=== PATIENT | female | born 1965 | race African-American/Black ===

== ENCOUNTER 2019-11-04 01:35 | Inpatient (IN) | payer MEDICAID ==
[~2019-11-04] VITALS: Ht 167.6 cm; Wt 58.1 kg
[~2019-11-04 01:35] MED LIST: LISI10TA5 PO
[2019-11-04] MEDS ORDERED: SODIUM CHLORIDE 0.9% 1,000 ML IV ONE ×2 (02:01→04:13)
[2019-11-04] MEDS ORDERED: KETOROLAC 30MG/ML VIAL IV STA (02:01)
[2019-11-04] MEDS ORDERED: ONDANSETRON HCL 4MG/2ML INJ IV STA (02:01)
[2019-11-04] MEDS ORDERED: FAMOTIDINE 20MG/2ML VIAL IV ONE (02:15)
[2019-11-04 02:26] LABS: BASOPHILS % 0.3 % (0.0-2.0); HEMOGLOBIN. 13.5 g/dL (12.0-16.0); LYMPHOCYTES % 7.8 % (20.0-50.0); MEAN CORPUSCULAR HEMOGLOBIN 32.1 pg (28.0-32.0); MEAN CORPUSCULAR VOLUME 92.4 fL (81.0-99.0); MEAN PLATELET VOLUME 8.6 fl (7.4-10.4); MONOCYTES % 3.9 % (2.0-8.0); PLATELET 384 x1000/uL (130-400); RED BLOOD CELL COUNT 4.22 mill/uL (4.2-5.4); RED CELL DISTRIBUTION WIDTH 13.2 % (11.6-14.6)
[2019-11-04 02:31] LABS: CHLORIDE 91 mEq/L (98-107)
[2019-11-04 03:04] LABS: CLARITY URINE CLOUDY (CLEAR); COLOR URINE YELLOW (YELLOW); KETONES URINE 2+ (NEGATIVE); LEUKOCYTE ESTERASE URINE NEGATIVE (NEGATIVE); NITRITE URINE NEGATIVE (NEGATIVE); OCCULT BLOOD URINE 1+ (NEGATIVE); PROTEIN URINE 2+ (NEGATIVE); SPECIFIC GRAVITY URINE 1.022 (1.005-1.030)
[2019-11-04] MEDS ORDERED: VISCOUS LIDOCAINE 2% 15 ML UDC MM STA (05:28)
[2019-11-04] MEDS ORDERED: MAGNESIUM/ALUMINUM HYDROXIDE/SIMETHICONE 30ML UDC PO ONE (05:30)
[2019-11-04] MEDS ORDERED: CEFTRIAXONE 2 G PREMIX 50 ML IV ONE (08:45)
[2019-11-04 12:00] VITALS: BP 142/85
[2019-11-04 13:00] VITALS: BP 118/57
[2019-11-04] MEDS ORDERED: CLONIDINE 0.1MG TABLET PO PRN (14:00)
[2019-11-04] MEDS ORDERED: SODIUM CHLORIDE 0.9% 1,000 ML IV SCH (14:00)
[2019-11-04] MEDS ORDERED: FAMOTIDINE 20MG/2ML VIAL IV SCH (14:00)
[2019-11-04] MEDS ORDERED: MECL-159 MT (14:23)
[2019-11-04] MEDS ORDERED: ACET650T37 PO (14:23)
[2019-11-04] MEDS ORDERED: POTA20TA82 MT (14:23)
[2019-11-04] MEDS ORDERED: ASPI-1497 MT (14:23)
[2019-11-04] MEDS ORDERED: LISI-648 MT (14:23)
[2019-11-04] MEDS ORDERED: SUCR1TAB30 MT (14:23)
[2019-11-04] MEDS ORDERED: ATOR-2 MT (14:23)
[2019-11-04 16:00] VITALS: BP 139/71
[2019-11-04] MEDS: KETOROLAC 30MG/ML VIAL IV PRN (17:35)
[2019-11-04] MEDS ORDERED: DEXT 5%/0.45% NACL 1000ML 1,000 ML IV SCH (18:24)
[2019-11-04] MEDS ORDERED: HYDRALAZINE 20MG/ML VIAL IV PRN (18:30)
[2019-11-04] MEDS ORDERED: MAGNESIUM/ALUMINUM HYDROXIDE/SIMETHICONE 30ML UDC PO PRN (18:30)
[2019-11-04] MEDS ORDERED: DIPHENHYDRAMINE 50MG/ML VIAL IV PRN (18:30)
[2019-11-04] MEDS ORDERED: ZOLPIDEM TARTRATE 5MG TABLET PO PRN (18:30)
[2019-11-04] MEDS ORDERED: LORAZEPAM 2MG/ML CPJ IV PRN (18:30)
[2019-11-04] MEDS ORDERED: ONDANSETRON HCL 4MG/2ML INJ IV PRN (18:30)
[2019-11-04] MEDS ORDERED: ACETAMINOPHEN 325MG TABLET PO PRN (18:30)
[2019-11-04 20:00] VITALS: BP 123/71
[2019-11-04] MEDS ORDERED: MVI, ADULT NO.1 10 ML, FOLIC ACID 1 MG, THIAMINE HCL 100 MG in SODIUM CHLORIDE 0.9% 1,0... IV SCH ×4 (20:00)
[2019-11-04] MEDS ORDERED: LEVOFLOXACIN 500MG PREMIX 100 ML IV SCH (20:00)
[2019-11-04] MEDS: FAMOTIDINE 20MG/2ML VIAL IV SCH (21:44)
[2019-11-05] VITALS: BP 110/74
[2019-11-05] MEDS: KETOROLAC 30MG/ML VIAL IV PRN ×3 (02:55→16:32)
[2019-11-05 04:00] VITALS: BP 116/68
[2019-11-05 07:02] LABS: BASOPHILS % 0.9 % (0.0-2.0); EOSINOPHILS % 0.6 % (0.0-5.0); HEMATOCRIT. 31.3 % (36.0-48.0); HEMOGLOBIN. 10.7 g/dL (12.0-16.0); LYMPHOCYTES % 26.9 % (20.0-50.0); MEAN CORPUSCULAR HEMOGLOBIN 32.4 pg (28.0-32.0); MEAN CORPUSCULAR VOLUME 94.5 fL (81.0-99.0); MEAN PLATELET VOLUME 7.9 fl (7.4-10.4); MONOCYTES % 9.3 % (2.0-8.0); NEUTROPHILS % 62.3 % (40.0-76.0); PLATELET 256 x1000/uL (130-400); RED BLOOD CELL COUNT 3.31 mill/uL (4.2-5.4); RED CELL DISTRIBUTION WIDTH 13.2 % (11.6-14.6)
[2019-11-05 07:44] LABS: PHOSPHORUS 2.8 mg/dL (2.5-4.9)
[2019-11-05] MEDS: FAMOTIDINE 20MG/2ML VIAL IV SCH (09:15)
[2019-11-05] MEDS: DEXT 5%/0.45% NACL 1000ML 1,000 ML IV SCH (19:08)
[2019-11-05 20:00] VITALS: BP 103/61
[2019-11-05] MEDS ORDERED: LEVOFLOXACIN 250MG PREMIX 50 ML IV SCH (20:00)
[2019-11-05] MEDS: PHENAZOPYRIDINE HCL 100MG TABLET PO SCH (21:17)
[2019-11-06] VITALS (7 sets, daily range): BP systolic 101–116; BP diastolic 61–75
[2019-11-06] MEDS: KETOROLAC 30MG/ML VIAL IV PRN (00:23)
[2019-11-06] MEDS: DEXT 5%/0.45% NACL 1000ML 1,000 ML IV SCH ×2 (04:40→09:09)
[2019-11-06] MEDS: PHENAZOPYRIDINE HCL 100MG TABLET PO SCH ×2 (09:01→12:37)
[2019-11-06] MEDS: FAMOTIDINE 20MG/2ML VIAL IV SCH (09:01)
== END 2019-11-06 20:10 | disposition home or self-care (01) | DRG 720 ==
LOC: ER 01:35 → 6WST 10:45 → CANRESERV 11:04 → ENRESERV 11:04 → EDBEDREQSVC 11:13 → EDBEDREQTM 11:13 → ENRESERV 11:34
PROVIDERS: ADMIT Internal Medicine; ATTEND Internal Medicine
DX: A41.9 Sepsis, unspecified organism (principal); N17.9 Acute kidney failure, unspecified; E87.8 Other disorders of electrolyte and fluid balance, not elsewhere classified; E87.1 Hypo-osmolality and hyponatremia; N30.00 Acute cystitis without hematuria; E78.00 Pure hypercholesterolemia, unspecified; I10 Essential (primary) hypertension; K21.9 Gastro-esophageal reflux disease without esophagitis; Z59.0 Homelessness; Z82.49 Family history of ischemic heart disease and other diseases of the circulatory system; Z87.440 Personal history of urinary (tract) infections; Z90.49 Acquired absence of other specified parts of digestive tract; Z90.721 Acquired absence of ovaries, unilateral; Z88.6 Allergy status to analgesic agent; Z88.5 Allergy status to narcotic agent; Z79.82 Long term (current) use of aspirin; Z79.899 Other long term (current) drug therapy
CPT/HCPCS: 36415; 74176; 80048; 80053; 81003; 83735; 84100; 85025; 99285; J0696; J1885; J1956; J2405; J3411; J3490; J7030

== ENCOUNTER 2020-10-17 09:03 | Inpatient (IN) | payer MEDICAID ==
[~2020-10-17] VITALS: Ht 157.5 cm; Wt 64.2 kg
[~2020-10-17 09:03] MED LIST changes: +ACET650T37 PO; +ASPI-1497 MT; +ATOR-2 MT; +LISI-648 MT; +LISI10TA26 PO; -LISI10TA5 PO; +MECL-159 MT; +POTA20TA82 MT; +SUCR1TAB30 MT
[2020-10-17] MEDS ORDERED: SODIUM CHLORIDE 0.9% 1,000 ML IV ONE (09:45)
[2020-10-17] MEDS ORDERED: KETOROLAC 15MG/ML VIAL IV ONE (09:45)
[2020-10-17] MEDS ORDERED: ONDANSETRON HCL 4MG/2ML INJ IV ONE (09:45)
[2020-10-17 09:58] LABS: CLARITY URINE TURBID (CLEAR); COLOR URINE YELLOW (YELLOW); KETONES URINE 4+ (NEGATIVE); LEUKOCYTE ESTERASE URINE 2+ (NEGATIVE); NITRITE URINE NEGATIVE (NEGATIVE); OCCULT BLOOD URINE 2+ (NEGATIVE); PROTEIN URINE 2+ (NEGATIVE); SPECIFIC GRAVITY URINE 1.023 (1.005-1.030)
[2020-10-17 10:03] LABS: EOSINOPHILS % 1.4 % (0.0-5.0); HEMATOCRIT. 39.8 % (36.0-48.0); HEMOGLOBIN. 13.7 g/dL (12.0-16.0); LYMPHOCYTES % 25.8 % (20.0-50.0); MEAN CORPUSCULAR HEMOGLOBIN 32.4 pg (28.0-32.0); MEAN CORPUSCULAR VOLUME 94.1 fL (81.0-99.0); MEAN PLATELET VOLUME 8.3 fl (7.4-10.4); MONOCYTES % 9.4 % (2.0-8.0); NEUTROPHILS % 62.4 % (40.0-76.0); PLATELET 342 x1000/uL (130-400); RED BLOOD CELL COUNT 4.24 mill/uL (4.2-5.4); RED CELL DISTRIBUTION WIDTH 13.9 % (11.6-14.6)
[2020-10-17 10:06] LABS: CHLORIDE 93 mEq/L (98-107)
[2020-10-17 10:08] LABS: PROTHROMBIN TIME 10.8 sec (9.6-11.0)
[2020-10-17] MEDS ORDERED: KCL 20MEQ/100ML PREMIX 100 ML IV NR (10:30)
[2020-10-17] MEDS ORDERED: POTASSIUM CHLORIDE 20MEQ TABLET SR PO NR (10:30)
[2020-10-17] MEDS ORDERED: CEFTRIAXONE 1 G PREMIX 50 ML IV NR (11:45)
[2020-10-17] MEDS ORDERED: IOHEXOL-300 100 ML BOTTLE ONE (13:39)
[2020-10-17] MEDS ORDERED: DOCUSATE SODIUM 100MG CAPSULE PO PRN (14:15)
[2020-10-17] MEDS ORDERED: CLONIDINE 0.1MG TABLET PO PRN (14:15)
[2020-10-17] MEDS ORDERED: GUAIFENESIN 200MG/10ML SUGAR FREE UDC PO PRN (14:15)
[2020-10-17] MEDS ORDERED: CEFTRIAXONE 1 G PREMIX 50 ML IV SCH (14:15)
[2020-10-17] MEDS ORDERED: ONDANSETRON HCL 4MG/2ML INJ IV PRN (14:15)
[2020-10-17] MEDS ORDERED: MAGNESIUM/ALUMINUM HYDROXIDE/SIMETHICONE 30ML UDC PO PRN (14:15)
[2020-10-17 15:12] VITALS: BP 131/75
[2020-10-17 16:00] VITALS: BP 131/75
[2020-10-17] MEDS: KETOROLAC 30MG/ML VIAL IV PRN (17:16)
[2020-10-17] MEDS: AMLODIPINE 10MG TABLET PO SCH (17:18)
[2020-10-17] MEDS: SODIUM CHLORIDE 0.45% 1,000 ML IV SCH (17:57)
[2020-10-17 20:00] VITALS: BP 96/55
[2020-10-18] VITALS: BP 101/61
[2020-10-18 04:00] VITALS: BP 116/72
[2020-10-18] MEDS: SODIUM CHLORIDE 0.45% 1,000 ML IV SCH ×2 (04:31→16:59)
[2020-10-18] MEDS: KETOROLAC 30MG/ML VIAL IV PRN ×3 (04:32→16:59)
[2020-10-18 07:00] LABS: EOSINOPHILS % 3.8 % (0.0-5.0); HEMATOCRIT. 33.3 % (36.0-48.0); HEMOGLOBIN. 11.1 g/dL (12.0-16.0); LYMPHOCYTES % 19.7 % (20.0-50.0); MEAN CORPUSCULAR HEMOGLOBIN 31.5 pg (28.0-32.0); MEAN CORPUSCULAR VOLUME 94.7 fL (81.0-99.0); MEAN PLATELET VOLUME 8.5 fl (7.4-10.4); MONOCYTES % 11.7 % (2.0-8.0); NEUTROPHILS % 63.8 % (40.0-76.0); PLATELET 301 x1000/uL (130-400); RED BLOOD CELL COUNT 3.52 mill/uL (4.2-5.4)
[2020-10-18 07:19] LABS: CHLORIDE 102 mEq/L (98-107)
[2020-10-18 08:00] VITALS: BP 117/68
[2020-10-18] MEDS ORDERED: POTASSIUM CHLORIDE INJ 40 MEQ in DEXT 5% WATER 500 ML IV NR (09:00)
[2020-10-18] MEDS: ASPIRIN 81MG EC TABLET PO SCH (09:23)
[2020-10-18] MEDS: AMLODIPINE 10MG TABLET PO SCH (09:24)
[2020-10-18 12:00] VITALS: BP 132/81
[2020-10-18] MEDS: CEFTRIAXONE 1,000 MG in DEXTROSE 5% WATER 50 ML IV SCH (13:50)
[2020-10-18 16:00] VITALS: BP 111/64
[2020-10-18 20:00] VITALS: BP 104/67
[2020-10-19] VITALS: BP 106/67
[2020-10-19] MEDS: KETOROLAC 30MG/ML VIAL IV PRN ×3 (01:25→21:57)
[2020-10-19 04:00] VITALS: BP 111/63
[2020-10-19] MEDS: SODIUM CHLORIDE 0.45% 1,000 ML IV SCH ×2 (06:09→21:56)
[2020-10-19 06:33] LABS: CHLORIDE 105 mEq/L (98-107)
[2020-10-19 08:00] VITALS: BP 112/70
[2020-10-19] MEDS: ASPIRIN 81MG EC TABLET PO SCH (09:06)
[2020-10-19] MEDS: AMLODIPINE 10MG TABLET PO SCH (09:07)
[2020-10-19] MEDS: POTASSIUM CHLORIDE 20MEQ TABLET SR PO SCH (11:06)
[2020-10-19] MEDS: CEFTRIAXONE 1,000 MG in DEXTROSE 5% WATER 50 ML IV SCH (11:06)
[2020-10-19 12:00] VITALS: BP 107/68
[2020-10-19 16:00] VITALS: BP 113/70
[2020-10-19 20:00] VITALS: BP_SYST 117; BP_SYST 129; BP_DIAS 72; BP_DIAS 80
[2020-10-20] VITALS: BP 110/68
[2020-10-20] MEDS: IBUPROFEN 400MG TABLET PO PRN ×3 (00:09→21:17)
[2020-10-20 04:00] VITALS: BP 103/62
[2020-10-20 06:45] LABS: CHLORIDE 106 mEq/L (98-107)
[2020-10-20 08:00] VITALS: BP 113/64
[2020-10-20] MEDS: POTASSIUM CHLORIDE 20MEQ TABLET SR PO SCH (08:24)
[2020-10-20] MEDS: AMLODIPINE 10MG TABLET PO SCH (08:24)
[2020-10-20] MEDS: ASPIRIN 81MG EC TABLET PO SCH (08:24)
[2020-10-20] MEDS: SODIUM CHLORIDE 0.45% 1,000 ML IV SCH ×2 (08:27→21:16)
[2020-10-20 12:00] VITALS: BP 102/67
[2020-10-20] MEDS: CEFTRIAXONE 1,000 MG in DEXTROSE 5% WATER 50 ML IV SCH (13:53)
[2020-10-20] MEDS: KETOROLAC 30MG/ML VIAL IV PRN (15:50)
[2020-10-20 16:00] VITALS: BP 110/64
[2020-10-20 20:00] VITALS: BP 105/62
[2020-10-21] VITALS: BP 108/77
[2020-10-21 04:00] VITALS: BP 126/77
[2020-10-21] MEDS: KETOROLAC 30MG/ML VIAL IV PRN ×2 (04:32→18:38)
[2020-10-21 07:07] LABS: BASOPHILS % 1.8 % (0.0-2.0); HEMATOCRIT. 32.9 % (36.0-48.0); HEMOGLOBIN. 11.1 g/dL (12.0-16.0); LYMPHOCYTES % 19.5 % (20.0-50.0); MEAN CORPUSCULAR VOLUME 94.8 fL (81.0-99.0); MEAN PLATELET VOLUME 8.5 fl (7.4-10.4); MONOCYTES % 13.4 % (2.0-8.0); NEUTROPHILS % 61.3 % (40.0-76.0); PLATELET 273 x1000/uL (130-400); RED BLOOD CELL COUNT 3.48 mill/uL (4.2-5.4); RED CELL DISTRIBUTION WIDTH 14.1 % (11.6-14.6)
[2020-10-21 07:23] LABS: CHLORIDE 107 mEq/L (98-107)
[2020-10-21 08:00] VITALS: BP 113/73
[2020-10-21] MEDS: AMLODIPINE 10MG TABLET PO SCH (09:07)
[2020-10-21] MEDS: ASPIRIN 81MG EC TABLET PO SCH (09:07)
[2020-10-21] MEDS: POTASSIUM CHLORIDE 20MEQ TABLET SR PO SCH (09:07)
[2020-10-21] MEDS: IBUPROFEN 400MG TABLET PO PRN (09:08)
[2020-10-21] MEDS: LOPERAMIDE HCL 2MG CAPSULE PO PRN ×2 (10:57→21:26)
[2020-10-21] MEDS: CEFTRIAXONE 1,000 MG in DEXTROSE 5% WATER 50 ML IV SCH (10:57)
[2020-10-21] MEDS: SODIUM CHLORIDE 0.45% 1,000 ML IV SCH (10:58)
[2020-10-21 12:00] VITALS: BP 97/70
[2020-10-21] MEDS: LEVOFLOXACIN 250MG TABLET PO SCH (12:40)
[2020-10-21 16:00] VITALS: BP 117/89
[2020-10-21 20:00] VITALS: BP 115/79
[2020-10-22] VITALS: BP 122/83
[2020-10-22 04:00] VITALS: BP 110/72
[2020-10-22] MEDS: LOPERAMIDE HCL 2MG CAPSULE PO PRN (06:08)
[2020-10-22 06:20] LABS: CHLORIDE 111 mEq/L (98-107)
[2020-10-22 08:00] VITALS: BP 117/74
[2020-10-22] MEDS: POTASSIUM CHLORIDE 20MEQ TABLET SR PO SCH (09:28)
[2020-10-22] MEDS: AMLODIPINE 10MG TABLET PO SCH (09:28)
[2020-10-22] MEDS: ASPIRIN 81MG EC TABLET PO SCH (09:28)
[2020-10-22] MEDS: KETOROLAC 30MG/ML VIAL IV PRN (10:30)
[2020-10-22] MEDS: LEVOFLOXACIN 250MG TABLET PO SCH (10:57)
[2020-10-22 12:00] VITALS: BP 112/69
[2020-10-22] MEDS: VANCOMYCIN HCL 1000 MG/20 ML ORAL PO SCH ×3 (12:26→23:36)
[2020-10-22 16:00] VITALS: BP 111/65
[2020-10-22 20:00] VITALS: BP 123/72
[2020-10-23 00:07] VITALS: BP 94/53
[2020-10-23 04:00] VITALS: BP 118/77
[2020-10-23] MEDS: VANCOMYCIN HCL 1000 MG/20 ML ORAL PO SCH ×3 (05:22→17:16)
[2020-10-23] MEDS: LOPERAMIDE HCL 2MG CAPSULE PO PRN (05:30)
[2020-10-23 08:00] VITALS: BP 110/61
[2020-10-23] MEDS: POTASSIUM CHLORIDE 20MEQ TABLET SR PO SCH (08:46)
[2020-10-23] MEDS: AMLODIPINE 10MG TABLET PO SCH (08:47)
[2020-10-23] MEDS: ASPIRIN 81MG EC TABLET PO SCH (08:47)
[2020-10-23 12:00] VITALS: BP 116/74
[2020-10-23] MEDS: IBUPROFEN 400MG TABLET PO PRN (13:40)
[2020-10-23 16:00] VITALS: BP 106/69
[2020-10-23 20:00] VITALS: BP 119/74
[2020-10-24] VITALS: BP 115/71
[2020-10-24] MEDS: VANCOMYCIN HCL 1000 MG/20 ML ORAL PO SCH ×2 (00:21→05:28)
[2020-10-24 04:00] VITALS: BP 119/78
[2020-10-24 08:00] VITALS: BP 110/61
[2020-10-24] MEDS: POTASSIUM CHLORIDE 20MEQ TABLET SR PO SCH (09:09)
[2020-10-24] MEDS: ASPIRIN 81MG EC TABLET PO SCH (09:09)
[2020-10-24] MEDS: AMLODIPINE 10MG TABLET PO SCH (09:09)
[2020-10-24 12:00] VITALS: BP 106/77
[2020-10-24 16:00] VITALS: BP 114/70
[2020-10-24 20:00] VITALS: BP 108/69
[2020-10-25] VITALS: BP 102/64
[2020-10-25 04:00] VITALS: BP 116/79
[2020-10-25 08:00] VITALS: BP 114/74
[2020-10-25] MEDS: ASPIRIN 81MG EC TABLET PO SCH (09:45)
[2020-10-25] MEDS: AMLODIPINE 10MG TABLET PO SCH (09:45)
[2020-10-25] MEDS: POTASSIUM CHLORIDE 20MEQ TABLET SR PO SCH (09:45)
== END 2020-10-25 16:00 | disposition home or self-care (01) | DRG 248 ==
LOC: ER 09:10 → 6EST 13:30 → ENRESERV 14:02 → 5WST 10-19 20:52
PROVIDERS: ADMIT Hospitalist; ATTEND Hospitalist
DX: A04.72 Enterocolitis due to Clostridium difficile, not specified as recurrent (principal); E83.41 Hypermagnesemia; N39.0 Urinary tract infection, site not specified; D50.9 Iron deficiency anemia, unspecified; E87.6 Hypokalemia; I10 Essential (primary) hypertension; E78.5 Hyperlipidemia, unspecified; R73.03 Prediabetes; E78.00 Pure hypercholesterolemia, unspecified; K57.30 Diverticulosis of large intestine without perforation or abscess without bleeding; K62.89 Other specified diseases of anus and rectum; Z20.822 Contact with and (suspected) exposure to COVID-19; R07.89 Other chest pain; K21.9 Gastro-esophageal reflux disease without esophagitis; Z90.49 Acquired absence of other specified parts of digestive tract; Z87.440 Personal history of urinary (tract) infections; Z59.0 Homelessness; Z88.6 Allergy status to analgesic agent; Z88.5 Allergy status to narcotic agent; Z79.1 Long term (current) use of non-steroidal anti-inflammatories (NSAID); Z79.899 Other long term (current) drug therapy; Z79.82 Long term (current) use of aspirin; B96.20 Unspecified Escherichia coli [E. coli] as the cause of diseases classified elsewhere
CPT/HCPCS: 36415; 71045; 74177; 80048; 80053; 81003; 82270; 83036; 83540; 83550; 83735; 84100; 85025; 87015; 87045; 87077; 87186; 87426; 87427; 87449; 87493; 93005; 93970; 99285; C1893; J0696; J1885; J2405; J3370; J3480; J7030; J7040; J7060; Q9967